=== PATIENT | male | born 1980 | race African-American/Black ===

== ENCOUNTER 2019-04-10 18:20 | Emergency (ER) | payer BC ==
[~2019-04-10] VITALS: Ht 182.8 cm; Wt 90.7 kg
[~2019-04-10 18:20] MED LIST: ATRIPLA 600 MG-1 TA1 PO; BACTRIM DS 8001 TA1 PO; CLARITIN10 MG PO; HYDROCODONE BIT1 T11 PO; MEDROL DOSEPAK4 MG PO; Motrin,Rufen800 MG PO; Orphenadrine C100 MG PO
[2019-04-10] MEDS ORDERED: DELTASONE20 M1 PO (18:40)
[2019-04-10] MEDS ORDERED: EPIPEN 2-P0.3 MG/0.3 IJ (18:54)
== END 2019-04-10 18:38 | disposition home or self-care (01) ==
LOC: ED 18:20
DX: T63.441A Toxic effect of venom of bees, accidental (unintentional), initial encounter (principal); Y92.89 Other specified places as the place of occurrence of the external cause

== ENCOUNTER 2021-10-17 08:33 | Emergency (ER) | payer OTHER ==
[~2021-10-17] VITALS: Ht 182.8 cm; Wt 90.7 kg
[~2021-10-17 08:33] MED LIST changes: +DELTASONE20 M1 PO; +EPIPEN 2-P0.3 MG/0.3 IJ; +LIDEX 0.05% CRE15 GM T; +PREDNISONE20 M1 PO
[2021-10-17] MEDS ORDERED: VIBRAMYCIN100 MG PO (08:56)
[2021-10-17 09:20] LABS: BILIRUBIN Negative (Negative); BLOOD Negative (Negative); CLARITY Clear (Clear); COLOR Yellow (Yellow); GLUCOSE Negative (Negative); KETONE Negative (Negative); LEUKO ESTERASE 2+ (Negative); NITRITE Negative (Negative); UROBILINOGEN 0.2 E.U./dl (0.0-1.0)
[2021-10-17 09:36] LABS: BACTERIA TRACE; EPITHELIAL CELLS 0-2; MUCOUS 2+; WBC 41-50 wbc/hpf (0-5)
== END 2021-10-17 09:04 | disposition home or self-care (01) ==
LOC: ED 08:33
PROVIDERS: Emergency Medicine
DX: A64 Unspecified sexually transmitted disease (principal)

== ENCOUNTER 2022-03-24 16:18 | Emergency (ER) | payer OTHER ==
[~2022-03-24] VITALS: Ht 182.8 cm; Wt 90.7 kg
[~2022-03-24 16:18] MED LIST changes: +VIBRAMYCIN100 MG PO
[2022-03-24] MEDS ORDERED: MEDROL DOSEPAK4 MG PO (16:44)
== END 2022-03-24 16:55 | disposition home or self-care (01) ==
LOC: ED 16:18
DX: T63.441A Toxic effect of venom of bees, accidental (unintentional), initial encounter (principal); Y92.89 Other specified places as the place of occurrence of the external cause

== ENCOUNTER 2023-02-21 08:58 | Emergency (ER) | payer MEDICAID ==
[~2023-02-21] VITALS: Ht 182.9 cm; Wt 95.3 kg
[2023-02-21] MEDS ORDERED: PREDNISONE50 MG PO (09:30)
== END 2023-02-21 09:35 | disposition home or self-care (01) ==
LOC: ED 08:58
DX: L23.5 Allergic contact dermatitis due to other chemical products (principal); Z91.018 Allergy to other foods

== ENCOUNTER 2023-11-03 17:01 | Emergency (ER) | payer MEDICAID ==
[~2023-11-03] VITALS: Ht 182.8 cm; Wt 90.7 kg
[~2023-11-03 17:01] MED LIST changes: +PREDNISONE50 MG PO
[2023-11-03] MEDS ORDERED: PREDNISONE20 M1 PO (17:31)
[2023-11-03] MEDS ORDERED: methylPREDNISolone sod succ 125 MG VIAL IM ONE (17:35)
== END 2023-11-03 17:42 | disposition home or self-care (01) ==
LOC: ED 17:01
DX: M54.41 Lumbago with sciatica, right side (principal); Z91.013 Allergy to seafood; Z79.2 Long term (current) use of antibiotics; Z79.899 Other long term (current) drug therapy

== ENCOUNTER 2024-02-15 00:03 | Emergency (ER) | payer MEDICAID ==
[~2024-02-15] VITALS: Ht 182.8 cm; Wt 90.7 kg
[2024-02-15] MEDS ORDERED: TRIAMCINOLONE ACETONIDE 40 MG/ML VIAL IM ONE (00:15)
[2024-02-15] MEDS ORDERED: diphenhydrAMINE hydrochloride 25 MG CAP PO ONE (00:15)
[2024-02-15] MEDS ORDERED: ZYRTEC10 M2 PO (00:19)
== END 2024-02-15 00:39 | disposition home or self-care (01) ==
LOC: ED 00:03
DX: T78.3XXA Angioneurotic edema, initial encounter (principal); T78.40XA Allergy, unspecified, initial encounter; Z91.013 Allergy to seafood; Z87.891 Personal history of nicotine dependence; X58.XXXA Exposure to other specified factors, initial encounter

== ENCOUNTER 2025-05-02 06:38 | Emergency (ER) | payer MEDICAID ==
[~2025-05-02] VITALS: Ht 182.8 cm; Wt 95.3 kg
[~2025-05-02 06:38] MED LIST changes: +ZYRTEC10 M2 PO
[2025-05-02 07:33] LABS: BASO # 0.0 10*3/uL (0.0-0.1); BASO % 0.5 % (0.0-1.0); EOS # 0.1 10*3/uL (0.0-0.4); EOS % 1.1 % (1.0-4.0); MEAN CELL VOLUME 93.7 fl (80.0-94.0); MEAN CORPUSCULAR HGB 31.4 pg (27.0-31.0); MEAN PLATELET VOLUME 9.8 fl (9.6-12.3); MONO # 0.4 10*3/uL (0.1-1.0); MONO % 6.4 % (3.0-9.0); NEUT # 2.6 10*3/uL (2.3-7.9); NEUT % 39.9 % (47.0-73.0); NUCLEATED RED BLOOD CELL 0.0 % (0.0-0.0); NUCLEATED RED BLOOD CELL 0.0 10*3/uL (0.0-0.0); PLATELET COUNT AUTOMATED 232 10*3/uL (130-400); RED CELL DISTRI WIDTH 12.4 % (0-14.5)
[2025-05-02 07:58] LABS: BUN 9 mg/dl (9-23); SGPT/ALT 14 U/L (5-49)
[2025-05-02 08:06] LABS: BILIRUBIN Negative (Negative); BLOOD Negative (Negative); CLARITY Clear (Clear); COLOR Yellow (Yellow); KETONE Trace (Negative); LEUKO ESTERASE Negative (Negative); NITRITE Negative (Negative); PH 6.0 (4.5-8.0); SPECIFIC GRAVITY 1.025 (1.001-1.030); UROBILINOGEN 1.0 E.U./dl (0.0-1.0)
[2025-05-02 08:45] LABS: MUCOUS 2+; RBC 0-2 rbc/hpf (0-2)
[2025-05-02] MEDS ORDERED: MELOXICAM15 MG PO (08:53)
== END 2025-05-02 09:05 | disposition home or self-care (01) ==
LOC: ED 06:38
PROVIDERS: Internal Medicine
DX: R10.9 Unspecified abdominal pain (principal); R11.2 Nausea with vomiting, unspecified; Z79.899 Other long term (current) drug therapy; Z91.013 Allergy to seafood

== ENCOUNTER 2025-06-20 14:17 | Emergency (ER) | payer OTHER, MEDICAID ==
[~2025-06-20] VITALS: Ht 182.8 cm; Wt 90.7 kg
[~2025-06-20 14:17] MED LIST changes: +MELOXICAM15 MG PO
[2025-06-20] MEDS ORDERED: VIBRAMYCIN100 MG PO (14:50)
[2025-06-20 15:18] LABS: BILIRUBIN Negative (Negative); BLOOD Negative (Negative); CLARITY Clear (Clear); COLOR Yellow (Yellow); KETONE Trace (Negative); LEUKO ESTERASE 2+ (Negative); NITRITE Negative (Negative); PH 6.0 (4.5-8.0); SPECIFIC GRAVITY 1.025 (1.001-1.030); UROBILINOGEN 1.0 E.U./dl (0.0-1.0)
[2025-06-20 15:36] LABS: RBC 0-2 rbc/hpf (0-2); WBC 21-30 wbc/hpf (0-5)
[2025-06-20 15:37] LABS: BACTERIA 1+
== END 2025-06-20 15:10 | disposition home or self-care (01) ==
LOC: ED 14:17
PROVIDERS: Emergency Medicine
DX: A64 Unspecified sexually transmitted disease (principal); R36.9 Urethral discharge, unspecified; Z91.013 Allergy to seafood; Z79.899 Other long term (current) drug therapy